=== PATIENT | male | born 1935 | race Caucasian/White ===

== ENCOUNTER → 2016-06-15 | Day surgery (SDC) | payer MEDICARE ==
[~2016-06-15] MED LIST: AMLO5TAB2 PO; CENTCHW4 CHEW; HYDR-2376 PO; MEDI220T PO; MULT-6 PO; NAPR220T95 PO; OMEG1CAP50 PO; OMEGCAP PO; PRIN20TA2 PO; PROPOFOL 200 MG/20 ML AMP IV ONE; SODIUM CHLORIDE 0.9% 10 ML VIAL ONE; SYNT175T PO; TRAM50TA PO; ZOCO20TA PO
--- NOTE | 2016-06-19 21:25 | M6 ---
cc: KE RAE M.D. DATE: 06/15/2016 DATE OF : 1935 PROCEDURE Fluoroscopically guided injection neurolytic substance bilateral sacroiliac joints (3% phenol). History and physical was completed and signed. Consent was signed. Procedure site was marked. Medications were listed and reconciled. Pain score was recorded. Allergies were noted. Time out was taken. Fluoroscopy time was recorded where applicable. Sedation was administered or directed by Dr. Rae. The patient was given oxygen. The patient was monitored by a registered nurse. Total procedure time was greater than 15 minutes. PROCEDURE NOTE: IV was started, blood pressure cuff, pulse oximeter and EKG were applied. The patient was placed in the prone position on a Royal table sedated with small amounts of propofol titrated to effect. Vital signs were monitored and remained stable throughout the procedure. Sacral area was prepped with alcohol and 10% Betadine solution, draped with sterile drapes. Fluoroscopy was used shooting from medial to lateral to clearly visualize the posterior joint line of the bilateral sacroiliac joints. Separate sterile 5-inch 22-gauge spinal needles were advanced into these joints under fluoroscopic guidance. There was negative aspiration for blood or any other type of fluid. At each location the patient was given 2 mL of 3% phenol. Following this the patient was taken to the recovery room with stable vital signs neurologically intact. W. MD ZAYRA Vargas/LINDA /10:29 AM /9:23 PM
== END | disposition home or self-care (01) ==
LOC: PHSDC 08:50
PROVIDERS: ATTEND Pain Medicine Interventional Pain Medicine
DX: M54.5 Low back pain (principal)
CPT/HCPCS: 64640; 99152

== ENCOUNTER → 2017-05-31 | Outpatient (CLI) | payer MEDICARE ==
[2017-05-31 13:22] LABS: BASOPHIL % 0.4 % (0.0-2.0); EOSINOPHIL # 0.2 TH/MM3 (0-0.4); EOSINOPHIL % 5.9 % (0.0-4.0); HEMATOCRIT 41.4 % (39.0-51.0); HEMOGLOBIN 13.6 GM/DL (13.0-17.0); LYMPHOCYTE # 1.3 TH/MM3 (1.0-4.8); MEAN CELL VOLUME 85.7 FL (80.0-100.0); MEAN CORPUSCULAR HEMOGLOBIN 28.2 PG (27.0-34.0); MEAN CORPUSCULAR HGB CONC 32.9 % (32.0-36.0); MEAN PLATELET VOLUME 7.5 FL (7.0-11.0); MONO % 15.8 % (0.0-8.0); MONOCYTE # 0.6 TH/MM3 (0-0.9); NEUT % 45.9 % (16.0-70.0); PLATELET COUNT 201 TH/MM3 (150-450); RED BLOOD COUNT 4.83 MIL/MM3 (4.50-5.90); RED CELL DISTRIBUTION WIDTH 13.6 % (11.6-17.2); WHITE BLOOD COUNT 4.1 TH/MM3 (4.0-11.0)
[2017-05-31 13:23] LABS: HEMO FLAGS DIFF FINAL
[2017-05-31 13:30] LABS: POTASSIUM 3.6 MEQ/L (3.5-5.1)
== END ==
LOC: PHPRE 12:49
DX: Z01.812 Encounter for preprocedural laboratory examination (principal); M54.5 Low back pain
CPT/HCPCS: 36415; 84132; 85025

== ENCOUNTER → 2017-06-07 | Day surgery (SDC) | payer MEDICARE ==
[~2017-06-07] VITALS: Ht 167.6 cm; Wt 81.0 kg
[~2017-06-07] MED LIST changes: +*Lactated Ringer's INJ 1,000 ML ONE; +BUPIVACAINE/EPINEPHRINE 0.25% PF 30 ML VIAL ONE; -CENTCHW4 CHEW; +CHLORHEXIDINE GLUCONATE 2 % 1 PACK (2 CLOTHS) TOPICAL PRN; +FAMOTIDINE 20 MG/2 ML VIAL ONE; +HYDR-3366 PO; +LACTATED RINGER'S 1000 ML IV PRN; +LIDOCAINE 1%/EPINEPHrine 1:100,000 SOLN 30 ML VIAL ONE; -MEDI220T PO; +MEPERIDINE HCL 50 MG/ML VIAL ONE; +METOPROLOL TARTRATE 25 MG TAB PO PRN; -MULT-6 PO; -NAPR220T95 PO; -OMEG1CAP50 PO; -OMEGCAP PO; -PROPOFOL 200 MG/20 ML AMP IV ONE; +PROPOFOL 200 MG/20 ML AMP ONE; +SODIUM CHLORID 0.9% 500 ML IV PRN; -SODIUM CHLORIDE 0.9% 10 ML VIAL ONE; +SODIUM CHLORIDE 0.9% 20 ML VIAL ONE; +VANCOMYCIN 500 MG/NS 100 ML IV SCH
[2017-06-07 13:50] VITALS: TEMP 97
[2017-06-07 14:52] VITALS: BP 116/69; PULSE 85; RESP 16; O2SAT 98
--- NOTE | 2017-06-07 15:33 | RADRPT ---
EXAM DATE/TIME: 06/07/2017 12:46 [facility] COMPARISON: No previous studies available for comparison. INDICATIONS : Back pain. Trial stimulator in or. MEDICAL HISTORY : None. SURGICAL HISTORY : None. ENCOUNTER: Initial ACUITY: 1 day PAIN SCORE: Non-responsive. LOCATION: Thoracic spine FINDINGS: A single magnified C-arm spot views a frontal projection of the thoracolumbar junction. Rudimentary r ibs are seen at T12. A graduated catheter overlies the spine with the tip projecting to the T10 super ior endplate level. CONCLUSION: Limited image as detailed above. Carl Yan Jr., MD on June 07, 2017 at 15:30 Board Certified Radiologist. This report was verified electronically.
--- NOTE | 2017-06-08 10:41 | MP ---
cc: KE JONES M.D. DATE OF SURGERY: 06/07/2017 DATE OF : 1935 PREOPERATIVE DIAGNOSIS: 1. Severe sacral ileitis. 2. Severe spinal stenosis. 3. Intractable back pain. POSTOPERATIVE DIAGNOSIS: 1. Severe sacral ileitis. 2. Severe spinal stenosis. 3. Intractable back pain. PROCEDURE: 1. Implantation of [employer]tronics Octrodes for spinal cord stimulation. 2. Implantation of [employer]tron[employer] quad electrodes x2 for cluneal nerve stimulation. PROCEDURE NOTE IV was started holding area the patient was given IV antibiotics the surgical consent was signed. The surgical site was marked. The patient was taken to the operating room, placed in the prone position on the operating room table sedated monitored by Anesthesia. Her back was prepped with Chloraprep and draped with sterile drapes. Fluoroscopy was used to visualize the L1-L2 interspace. The skin was infiltrated with 0.25% Marcaine, then a modified Tuohy needle from the [employer] kit was advanced into the epidural space using [id number] technique. Then a [employer] hot troth was advanced in the cephalad direction slightly left of the midline into the cephalad electrodes were at the cephalad portion of T10. The caudal electrodes were at the caudal portion of T11. At this point the patient was awakened and stimulation took place, the patient received excellent stimulation down his entire left leg and left foot over the area of his usual pain on multiple electrode combinations. Then the patient was resuscitated and incision was made around the needle, an amp an anchoring device was placed over the lead and then this was sutured to the underlying interspinous ligament. Fluoroscopy was used confirm the lead did not move during the anchoring process. Then a tunneling device was used to tunnel two [employer]tronics knocked Vaughan one was placed over the left and one of the other was placed over the right cluneal nerves. These were also anchored in that midline incision using 2-0 Ethilon suture. Then distal extension wires were connected to the peripheral stimulating leads in the spinal cord stimulating leads. Impedance was checked at the bedside found to be appropriate in all electrodes then the connection between the distal extension wire the stimulating leads was covered with a Silastic cover secured both ends with that upon suture. Then an incision was made in the patient's left flank and a subcutaneous pocket was created. The distal extension wires were tunneled to the left flank incision then a final tunnel was tunneled further distally into the left flank to perform an exit site for the distal extension wires then the lumbar incision in the left flank incision were closed using 3-0 Monocryl in subcuticular tissue and 3-0 nylon on the skin. The incisions were covered with sterile adhesive dressings and the patient was taken to the recovery room with stable vital signs neurologically intact. W. MD ZAYRA Vargas/iza /2:09 PM /9:59 AM
== END | disposition home or self-care (01) ==
LOC: PHSDC 09:26
PROVIDERS: ATTEND Pain Medicine Interventional Pain Medicine
DX: M46.1 Sacroiliitis, not elsewhere classified (principal); M48.08 Spinal stenosis, sacral and sacrococcygeal region; M54.5 Low back pain
CPT/HCPCS: 00300; 64575; 72020; 76000; C1778; C1883; J2175; J3370; J7120

== ENCOUNTER → 2017-06-17 | Day surgery (SDC) | payer MEDICARE ==
[~2017-06-17] VITALS: Ht 167.6 cm; Wt 81.0 kg
[~2017-06-17] MED LIST changes: -*Lactated Ringer's INJ 1,000 ML ONE; +BUPIVACAINE/EPINEPHRINE 0.25% 50 ML VIAL ONE; -BUPIVACAINE/EPINEPHRINE 0.25% PF 30 ML VIAL ONE; +CHLORHEXIDINE GLUCONATE 2 % 1 PACK (2 CLOTHS) TOPICAL ONE; -CHLORHEXIDINE GLUCONATE 2 % 1 PACK (2 CLOTHS) TOPICAL PRN; -FAMOTIDINE 20 MG/2 ML VIAL ONE; +LACTATED RINGER'S 1000 ML INJ 1,000 ML ONE; -LIDOCAINE 1%/EPINEPHrine 1:100,000 SOLN 30 ML VIAL ONE; +LIDOCAINE HCL 1% PF 5 ML SYRINGE OTHER ONE; +PHENYLEPH/NS 1000 MCG/10 ML SYR IV ONE; +POVIDONE IODINE 5% (ANTISEPSIS KIT) 4 APPLICATIONS EACH NARE ONE; +PROPOFOL 200 MG/20 ML AMP IV ONE; -PROPOFOL 200 MG/20 ML AMP ONE; -SODIUM CHLORIDE 0.9% 20 ML VIAL ONE; +SODIUM CHLORIDE 0.9% INJ 100 ML ONE; +VANCOMYCIN 500 MG VIAL ONE; +VANCOMYCIN 500 MG/NS 100 ML IV PRN; -VANCOMYCIN 500 MG/NS 100 ML IV SCH; +ePHEDrine/NS 25 MG/5 ML SYRINGE IV ONE
[2017-06-17 14:45] VITALS: BP 106/71; PULSE 92; RESP 16; TEMP 97.7; O2SAT 96
--- NOTE | 2017-06-18 12:41 | MP ---
cc: KE JONES M.D. DATE OF SURGERY 06/17/2017 DATE OF 1935 PROCEDURE Implantation of a Medtronic dual-channel rechargeable pulse generator for spinal cord stimulation. 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 PROCEDURE NOTE An IV was started in the holding area. The patient was given IV antibiotics. Consent forms were signed. The surgical site was marked. The patient was taken to the operating room and given anesthesia by the Anesthesia Department. She was placed in the right lateral decubitus position. All pressure points were checked and padded. The distal extension wires in her left flank were prepped with alcohol and cut with sterile scissors. Then she was prepped with ChloraPrep and draped with sterile drapes. The area over the spinal cord leads in the mid lumbar area was infiltrated with 0.25% Marcaine with epinephrine and also an area in the left subcostal region was infiltrated. Then the lumbar incision with was opened. The distal extension wires from the stimulating leads were disconnected from the stimulating leads by loosening Smooth screws. Then a tunneling device was used to tunnel the new distal extension wires over to the left subcostal incision where the new distal extension wires were connected to a dual-channel rechargeable pulse generator. Impedance was checked at the bedside and found to be appropriate in all of the electrodes. The connection between the stimulating leads and the distal extension wires was covered with a Silastic cover secured at both ends with Ethibond suture. The pulse generator was placed in the subcutaneous pocket and anchored to the underlying fascia using two 2-0 Ethibond sutures. The lumbar incision and the left subcostal incision were closed using 3-0 Monocryl in the subcuticular tissue and 3-0 nylon on the skin. The incisions were covered with sterile adhesive dressings and the patient was taken to the recovery room with stable vital signs, neurologically intact. W. MD ZAYRA Vargas/ADAM /12:40 PM /12:17 PM
== END | disposition home or self-care (01) ==
LOC: PHSDC 09:37
PROVIDERS: ATTEND Pain Medicine Interventional Pain Medicine
DX: M96.1 Postlaminectomy syndrome, not elsewhere classified (principal); M54.5 Low back pain; M79.605 Pain in left leg; I10 Essential (primary) hypertension; Z98.1 Arthrodesis status
CPT/HCPCS: 00300; 63685; C1767; C1883; J2175; J2370; J3370; J7120